=== PATIENT | female | born 1995 | race Caucasian/White ===

== ENCOUNTER 2021-05-12 17:06 | Emergency (ER) | payer MEDICAID ==
[~2021-05-12] VITALS: Ht 160 cm; Wt 54.0 kg
[2021-05-12] MEDS ORDERED: METHYLPREDNISOLONE SOD SUCC 125 MG/2 ML VIAL IV ONE (17:30)
[2021-05-12] MEDS ORDERED: FAMOTIDINE 20MG/2ML VIAL IV ONE (17:30)
[2021-05-12] MEDS ORDERED: DIPHENHYDRAMINE 50MG/ML VIAL IV ONE (17:30)
[2021-05-12 18:02] LABS: HEMATOCRIT. 30.4 % (36.0-48.0); HEMOGLOBIN. 10.8 g/dL (12.0-16.0); MEAN CORPUSCULAR HEMOGLOBIN 32.4 pg (28.0-32.0); MEAN CORPUSCULAR VOLUME 91.2 fL (81.0-99.0); MEAN PLATELET VOLUME 6.7 fl (7.4-10.4); PLATELET 208 x1000/uL (130-400); RED BLOOD CELL COUNT 3.33 mill/uL (4.2-5.4); RED CELL DISTRIBUTION WIDTH 12.3 % (11.6-14.6)
[2021-05-12 18:09] LABS: CHLORIDE 102 mEq/L (98-107); HCG SCREEN NEGATIVE
[2021-05-12 18:13] LABS: ETHANOL BLOOD < 10 mg/dL
[2021-05-12 18:21] LABS: B-HCG QUANTITATIVE < 1 mIU/mL (<3)
[2021-05-12 19:36] LABS: PLATELET ESTIMATE NORMAL
[2021-05-12] MEDS ORDERED: CLIN300C12 MT (20:52)
[2021-05-12] MEDS ORDERED: CEFD300C3 MT (20:52)
[2021-05-12] MEDS ORDERED: DIPH25CA83 MT (20:55)
[2021-05-12] MEDS ORDERED: LIDO700A30 TP (20:55)
[2021-05-12] MEDS ORDERED: P50 MT (20:55)
[2021-05-12 21:10] VITALS: BP 100/64
== END 2021-05-12 21:22 | disposition home or self-care (01) ==
LOC: ER 17:06 → EDBD 17:06 → ER 21:22
DX: T78.40XA Allergy, unspecified, initial encounter (principal); I49.9 Cardiac arrhythmia, unspecified; Z88.0 Allergy status to penicillin; X58.XXXA Exposure to other specified factors, initial encounter
CPT/HCPCS: 80053; 80307; 80320; 82962; 83605; 84443; 84484; 84702; 84703; 85025; 93005; 96374; 96375; 99285; J1200; J2930; J3490; G0480